=== PATIENT | female | born 1955 | race Caucasian/White ===

== ENCOUNTER 2022-12-20 07:50 | Outpatient (CLI) | payer OTHER, SELFPAY ==
--- NOTE | ~2022-12-20 | MM_ITS ---
EXAMINATION: MM screening herbert BI w kvng HISTORY: Screening mammogram TECHNIQUE: Craniocaudal and mediolateral oblique 3-D tomosynthesis images were obtained and synthetic 2-D images were generated. CAD analysis was submitted and interpreted. COMPARISON: No prior mammogram is available for comparison at this institution. BREAST PARENCHYMAL COMPOSITION: There are scattered areas of fibroglandular density. FINDINGS: No suspicious mass, calcification, or architectural distortion are identified in either gamal ast to suggest malignancy. IMPRESSION: 1. No mammographic evidence of malignancy. 2. Recommend routine screening mammography in one year. BI-RADS Category 1: Negative Reviewed, dictated and finalized at location A.
--- NOTE | ~2022-12-20 | DEXA_ITS ---
Bone Density Report Name: CHACHO ARREDONDO Age: 67 Sex: Female Ethnicity: White Date of : 1955 Indication: postmenopausal; screening for osteoporosis; height loss; prior fracture; asthma or emphysema; Referring Provider: LILLY, JAYDA Crowe Study: Bone densitometry was performed. Exam Date: December 20, 2022 Accession number: [id number] Bone Density: Region BMD T-score Z-score Classification AP Spine(L1-L4) 0.910 -1.2 0.6 Osteopenia Femoral Neck (Left) 0.690 -1.4 0.1 Osteopenia Total Hip (Left) 0.829 -0.9 0.3 Normal Femoral Neck (Right) 0.614 -2.1 -0.6 Osteopenia Total Hip (Right) 0.797 -1.2 0.1 Osteopenia Total Hip Mean 0.813 -1.1 0.2 Osteopenia World Health Organization criteria for BMD impression classify patients as: Normal (T-score at or above -1.0), Osteopenia (T-score between -1.0 and -2.5), or Osteoporosis (T-score at or below -2.5). 10-year Fracture Risk: FRAX not reported because: Prior hip or vertebral fracture Clinical Information Provided by Patient: Have had a previous hip or vertebral fracture Has had a low trauma fracture Smokes Has used the following medications: Calcium Has the following medical conditions: Asthma or Emphysema Patient maximum height was 67 Menopause Age: 40 Drinks caffeinated beverages Onset of menses at age 18 Number of children 0 Impression: The patient has low bone mass, based on the Right Femoral Neck T-score. The patient has risk factors, including: smoking, previous fracture. Discussion: INCREASED RISK OF FRACTURE DUE TO HISTORY OF FRACTURE. The patient's previous fracture puts the patient at high risk of a future fracture. In untreated patients, the risk of osteoporotic fracture increases approximately two-fold for each 1.0 SD decrease in T-score. Low bone density is not the only risk factor for fracture; also consider factors such as patient's age, frailty or poor health, risk of falling, risk of injury, previous osteoporotic fracture, family history of osteoporosis, cigarette smoking, low body weight, etc. Not everyone with a low trauma fracture has osteoporosis; osteomalacia and other metabolic bone disorders should also be considered. Patients who have osteoporosis should be evaluated for specific diseases and conditions (secondary causes) that may cause or contribute to bone loss and fracture risk. National Osteoporosis Foundation (NOF) recommends pharmacologic intervention for patients with a prior hip or vertebral fracture regardless of BMD T-score. The patient should follow a healthful lifestyle (good nutrition with adequate calcium and vitamin D, and appropriate weight-bearing exercise). Follow-Up: Consider a repeat BMD and Vertebral Fracture Assessment (VFA) exam in 2 years or sooner if medically necessary, to reassess this patient's sta
== END 2022-12-20 07:51 | disposition home or self-care (01) ==
LOC: ANHIMG 07:54
PROVIDERS: PCP Family Medicine; Visit Provider Family Medicine
DX: Z12.31 Encounter for screening mammogram for malignant neoplasm of breast (principal); Z91.89 Other specified personal risk factors, not elsewhere classified; Z78.0 Asymptomatic menopausal state; M85.88 Other specified disorders of bone density and structure, other site; M85.852 Other specified disorders of bone density and structure, left thigh; M85.851 Other specified disorders of bone density and structure, right thigh
CPT/HCPCS: 77063; 77067; 77080

== ENCOUNTER 2023-01-11 17:51 | Emergency (ER) | payer MEDICARE, SELFPAY ==
[2023-01-11 18:13] VITALS: BP 139/89; PULSE 96; RESP 16; TEMP 36.4; O2SAT 98
--- NOTE | 2023-01-11 18:13 | ED.SKABFB ---
HPI - Skin/Abscess/Foreign Bdy General Chief complaint: Allergic Reaction Stated complaint: Insect Bite Time Seen by Provider: 01/11/23 18:05 Source: patient Mode of arrival: ambulatory Limitations: no limitations History of Present Illness HPI narrative: 67-year-old female presents stating she is having an allergic reaction. Patient states that symptoms Started approximately 3 hours ago. Reports rash, itching. 2 hours ago began to feel like she was having some difficulty breathing. Took 50 mg of Benadryl and 2 Puffs from her inhaler. continues to have rash, redness swelling to face and lips. No difficulty swelling. States feels hard to take deep breath. Ambulatory with steady gait. Alert and talkative. No respiratory distress noted. All systems reviewed and negative except as noted above. Related Data Home Medications Medication Instructions Recorded Confirmed albuterol sulfate 90 mcg/actuation inhalation 01/11/23 aerosol inhaler alprazolam 1 mg tablet mg 01/11/23 atorvastatin 20 mg tablet mg 01/11/23 hydrochlorothiazide 50 mg tablet mg 01/11/23 ibuprofen 800 mg tablet mg 01/11/23 methocarbamol 750 mg tablet mg 01/11/23 sertraline 100 mg tablet mg 01/11/23 tramadol 50 mg tablet mg 01/11/23 Allergies Allergy/AdvReac Type Severity Reaction Status Date / Time doxycycline Allergy Other Verified 01/11/23 18:27 erythromycin base Allergy Other Verified 01/11/23 18:18 naproxen Allergy Other Verified 01/11/23 18:33 carl Allergy Swelling Uncoded 01/11/23 18:33 Review of Systems Review of Systems: CONSTITUTIONAL: Denies fever, chills, or sweats. EYES: Denies visual changes, redness, or discharge. ENT: Denies rhinorrhea, congestion, sore throat, or otalgia. CARDIOVASCULAR: Denies chest pain, palpitations, or edema. RESPIRATORY: Denies cough . Reports difficulty taking deep breath. GASTROINTESTINAL: Denies abdominal pain, nausea, vomiting, or diarrhea. GENITOURINARY: Denies dysuria or hematuria. SKIN: Reports rash, itching. MUSCULOSKELETAL: Denies back pain, joint pain, or myalgia. NEUROLOGIC: Denies headache, numbness, or weakness. PSYCHIATRIC: Denies anxiety or depression. All other systems reviewed are negative, except as documented in HPI. PMFSH Comments At time of signature, agree with nursing past medical, surgical, social and family history. There is no relevant family history pertinent to the presenting complaint. Exam Narrative: GENERAL: This is a well-nourished, well-developed patient, in no apparent distress. HEAD: normocephalic, atraumatic. EYES: PERRL. Sclera clear/white. Vision is grossly intact. EARS: External ears normal NOSE: External nose normal THROAT: Mucous membranes moist, posterior pharynx clear. NECK: Neck supple, non-tender without lymphadenopathy, masses or thyromegaly. CARDIOVASCULAR: Regular rate and rhythm without murmurs, gallops, or rubs. RESPIRATORY: Clear to auscultation. Breath sounds equal bilaterally. No wheezes, rales, or rhonchi. GASTROINTESTINAL: Abdomen soft, non-tender, nondistended. Bowel sounds are active. No hepato-splenomegaly, or palpable masses. No guarding. SKIN: warm, Dry, intact , good texture and turgor. erythematous papular rash to bilateral legs, upper back. erythema with mild swelling to face, ABD and low back. NEURO: awake, alert, and oriented to person, place and time. There were no obvious focal neurologic abnormalities. EXTREMITIES: No joint tenderness, effusion, or edema noted. Course Course Level of Care: Express Care Visit Reevaluation(s) Reevaluation #1: Patient reports that she is feeling better. No longer having any difficulty breathing. Lungs clear to auscultation. Date: 01/11/23 Time: 18:45 Vital Signs Vital signs: Vital Signs Temperature 36.4 C 01/11/23 18:13 Pulse Rate 96 01/11/23 18:13 Respiratory Rate 16 01/11/23 18:13 Blood Pressure 139/89 01/11/23 18:13 Pulse Oximetry 98 07
[2023-01-11] MEDS: methylPREDNISolone SOD SUCC 125 MG VIAL IM (18:22)
[2023-01-11] MEDS: FAMOTIDINE 20 MG TABLET 40 MG PO (18:22)
== END 2023-01-11 18:58 | disposition home or self-care (01) ==
PROVIDERS: Emergency Provider Nurse Practitioner Family; PCP Family Medicine
DX: T78.40XA Allergy, unspecified, initial encounter (principal); R21 Rash and other nonspecific skin eruption; E78.00 Pure hypercholesterolemia, unspecified; J45.909 Unspecified asthma, uncomplicated
CPT/HCPCS: 96372; 99213; A9270; G0463; J2930